=== PATIENT | female | born 1950 | race Caucasian/White ===

== ENCOUNTER 2025-02-26 08:08 | Day surgery (SDC) | payer MEDICARE, OTHER, SELFPAY ==
--- OUTSIDE RECORDS SUMMARY | 2025-02-22 08:54 | XMS_ITS | Patient Health Record ---
Author Organization [facility] Address [address] [place] [address] Care Team Providers Care Filament Maker Name Role Phone DWAYNE SMALL CNP Primary Care Provider U Noe Aranda Jr [phone] Allergies Allergen (clinical drug ingredient) Drug/Non Drug Allergy documented on EMR Reaction Allergy Type Onset Date Status Penicillin Unknown Drug Allergy Active Reason For Referral No Information Medications Medication SIG (Take, Route, Frequency, Duration) Notes Start Date End Date Status Omeprazole Active Levothyroxine Sodium 75 MCG 1 capsule in the morning on an empty stomach Orally Once a day Active Enalapril Maleate 20 MG 1 tablet Orally Once a day Active Multivitamin Active Tylenol Active Social History Tobacco Use: Social History Observation Description Date Details (start date - stop date) Never Smoker NA - NA Tobacco Control (Standard) Question Answer Notes Tobacco use: Nonsmoker AUDIT-C (Standard) Question Answer Notes Did you have a drink containing alcohol in the p ast year? No Points 0 Interpretation Negative Problems Problem Type SNOMED Code ICD Code Onset Dates Problem Status W/U Status Risk Notes Problem [id number] Colon cancer screening (Z12.11) Active confirmed Problem [id number] Gastroesophageal reflux disease, unspecified whether esophagitis present (K21.9) Active confirmed Vital Signs Blood pressure diastolic 11 mm Hg 02/21/2025 Height 61 in 02/21/2025 Blood pressure systolic 111 mm Hg 02/21/2025 Weight 155 lbs 02/21/2025 BMI 29.28 kg/m2 02/21/2025 Encounters Encounter Location Date Provider Diagnosis [facility] [address] [place] [address] 02/21/2025 Noe Cowan Jr Colon cancer screening Z12.11 and Gastroesophageal reflux disease, unspecified whether esophagitis present K21.9 [facility] [address] [facility] [address] [place] [address] 02/21/2025 Noe Cowan Assessments Encounter Date Diagnosis (ICD Code) Assessment Notes Treatment Notes Treatment Clinical Notes Section Notes 02/21/2025 Colon cancer screening (ICD-10 - Z12.11) Colonoscopy material was printed We discussed gastroesophageal reflux disease today. We discussed diet, lifestyle modifications, and weight management. We recommended she continue omeprazole. She will be seen in follow-up for colorectal cancer screening. She understands risks and benefits and agrees to proceed. This will be scheduled at her convenience. 02/21/2025 Gastroesophageal reflux disease, unspecified whether esophagitis present (ICD-10 - K21.9) Gastroesophageal reflux disease material was printed We discussed gastroesophageal reflux disease today. We discussed diet, lifestyle modifications, and weight management. We recommended she continue omeprazole. She will be seen in follow-up for colorectal cancer screening. She understands risks and benefits and agrees to proceed. This will be scheduled at her convenience. Plan Of Treatment Future Test Test Name Order Date COLONOSCOPY 02/21/2025 Next Appt Details Provider Name:Noe Landis Charles cheng Jr, 02/26/2025 12:00:00 PM, [address] [facility] , [place], [place], [phone], Insurance Providers Payer Name Payer Address Payer Phone Subscriber Number Group Number Insured Name Patient Relationship to Insured Coverage Start Date Coverage End Date [facility] [address] [place] [phone] [id number] RONIT BALDERRAMA Self - patient is the insured 4 MEDICAID OF [facility] [address] [place] [address] [id number] RONIT BALDERRAMA Self - patient is the insured Medical (General) History Medical History History ICD Code hx of breast cancer right/radiation/chem o hypertension Aortic stenosis, moderate Hypothyroidism Gastroesophageal reflux disease Surgical History Surgery Date(Month/Year) Right lumpectomy section-2 disc surgery
--- OUTSIDE RECORDS SUMMARY | 2025-02-22 08:54 | XMS_ITS | Clinical Summary ---
Author Organization [facility] Address [address] [place] [address] Care Team Providers Care Rn Camp Name Role Phone Unavailable Primary Care Provider Unavailabl e Immunizations Name Administration Dates Next Due PPD/TST (Tuberculin Skin Test) 11/23/1999 Social History Tobacco Use Types Packs/Day Years Used Date Smoking Tobacco: Never Assessed Comments Unknown Sex and Gender Information Value Date Recorded Sex Assigned at Not on file Legal Sex Female 4:51 AM EDT Gender Identity Not on file Sexual Orientation Not on file Plan of Treatment Health Maintenance Due Date Last Done Comments Hepatitis C Screening 1950 DTaP/Tdap/Td (1 - Tdap) 1969 Mammogram/Breast Imaging 1991 Pneumococcal 50+ years (1 of 1 - PCV) 2001 Zoster (Shingrix) (1 of 2) 2001 Bone Density 01/24/2016 COVID-19 Vaccine ( - 2023-2 5 season) 2024 Influenza (#1) 2024 RSV (1 - 1-dose 75+ series) 2026 HPV Vaccine Aged Out No longer eligi ble based on patient's age to complete this topic Hep A Aged Out No longer eligi ble based on patient's age to complete this topic Hep B Aged Out No longer eligi ble based on patient's age to complete this topic Hib Aged Out No longer eligi ble based on patient's age to complete this topic Meningococcal ACWY Aged Out No longer eligible based on patient's age to complete this topic Pap Smear Discontinued Zoster (Zostavax) Discontinued
--- OUTSIDE RECORDS SUMMARY | 2025-02-22 08:54 | XMS_ITS ---
Author Organization [facility] Address [address] [place] [phone] Care Team Providers Care Retail Parts Pro Name Role Phone DWAYNE SMALL CNP Primary Care Provider U manuel Cowan Jr, Noe Garcia REASON FOR VISIT colonoscopy Encounters Encounter Location Date Provider Diagnosis [facility] [address] [place] [phone] 02/21/2025 Noe Cowan Jr Plan Of Treatment Next Appt Details Provider Name:Noe cheng Jr, 02/26/2025 12:00:00 PM, [address] [place] [address] , [place], [place], [phone], Progress Notes * RONIT BALDERRAMADOB: (75 yo F)Acc No.[id number]:02/21/2025 Patient:?RONIT BALDERRAMA :1950???Age:75 Y???Sex:Female Address: [place] [address] * true * Date:? Generated for Printi renee/Carol/eTransmitting on:?02/22/2025 08:54 AM EDT
--- OUTSIDE RECORDS SUMMARY | 2025-02-22 08:54 | XMS_ITS ---
Author Organization [facility] Address [address] [place] [phone] Care Team Providers Care Picker Feeder Name Role Phone DWAYNE SMALL CNP Primary Care Provider U Noe Aranda Jr Unavailable Allergies Allergen (clinical drug ingredient) Drug/Non Drug Allergy documented on EMR Reaction Allergy Type Onset Date Status Penicillin Unknown Drug Allergy Active REASON FOR VISIT PATIENT PRESENTS TODAY FOR COLON SCREENING Medications Medication SIG (Take, Route, Frequency, Duration) [...] Problem Status W/U Status Risk Notes Problem [id number] Colon cancer screening (Z12.11) Active confirmed Problem [id number] Gastroesophageal reflux disease, unspecified whether esophagitis present (K21.9) Active confirmed Vital Signs Blood pressure systolic 111 mm Hg 02/22/20 25 Blood pressure diastolic 11 mm Hg 025 Height 61 in 02/21/2025 Weight 155 lbs 02/21/2025 BMI 29.28 kg/m2 02/21/2025 Encounters Encounter Location Date Provider [facility] [address] [place] [phone] 02/21/2025 Noe Cowan Jr Colon cancer screening Z12.11 and Gastroesophageal reflux disease, unspecified whether esophagitis present K21.9 Assessments Encounter Date Diagnosis (ICD Code) Assessment [...] scheduled at her convenience. Plan Of Treatment Treatment Notes Assessment Notes Colon cancer screening Colonoscopy mater ial was printed Gastroesophageal reflux dise ase, unspecified whether esophagitis present Gastroesophageal reflux disease material was printed Future Test Test Name Order Date COLONOSCOPY 02/21/2025 Next Appt Details Follow Up: 1 Year, Reason: Provider Name:Noe cheng Jr, 02/26/2025 12:00:00 PM, [address] [place] [address], [phone], Progress Notes * JODIE BALDERRAMA JDOB: (75 yo F)Acc No.[id number]:02/21/2025 Progress Notes Patient:?MICHAEL BALDERRAMARIGem Crooks Provider:?Noe Cowan MD :1950???Age:75 Y???Sex:Female D ate:02/21/2025 Address:[address] [place], [place] [id number] Pcp:DWAYNE SMALL CNP Subjective: * Chief Complaints: * ???1. PATIENT PRESENTS TODAY FOR COLON SCREENING. * HPI: ???New symptom(s):?Jodie is a pleasant 75-year-old woman seen today in consultation for gastroesophageal reflux disease andr her preoperative colonoscopy visit. She has a long history of gastroesophageal reflux disease with substernal burning precipitated by the typical foods including spicy foods and fatty foods. Symptoms have been under good control on omeprazole. She has no dysphagia, hematemesis, or melena. Weight and appetite have been stable. She has a history of colon polyps including a sessile serrated adenoma with high-grade dysplasia, with her last colonoscopy in 2019. She is due for follow- up. She has no complaints of rectal bleeding or change in her bowel habits. Weight and appetite have been stable. * ROS:?General/Constitutional:?Change in appetite?denies.?Fatigue?denies.?ENT:?Patient denies?difficulty swallowing.?Respiratory:?Patient denies?shortness of breath.?Cardiovascular:?Patient denies?chest pain.?Gastrointestinal:?Comments?See HPI for details.?Genitourinary:?Difficulty urinating?denies.?Incontinence?denies.?Musculoskeletal:?Patient denies?muscle aches.?Skin:?Patient denies?pruritis.?Neurologic:?Patient denies?low back pain.?Psychiatric:?Patient denies?mental or physical abuse.? * Medical History:?Hx of breas t cancer right/radiation/chemo, Hypertension, Aortic stenosis, moderate, Hypothyroidism, Gastroesophageal reflux disease. * Surgical History:?disc surge ry , section-2 , Right lumpectomy . * Family History:?Father: dece ased.?Mother: , alzheimer's dementia.?Paternal uncle: diagnosed with Heart disease.? no known hx of colon ca. * Social History:?Tobacco Use:?Tobacco Control (Standard)?Tobacco use:?Nonsmoker.?Miscellaneous:?Marital status: . Occupation: retired. ???Drug/Alcohol:?AUDIT-C (Standard)?Did you have a drink containing alcohol in the past year??No,?Points?0,?Interpretation?Negative.? * Medications:?Taking Tylenol , Taking Multivitamin , Taking Enalapril Maleate 20 MG Tablet 1 tablet Orally Once a day , Taking Levothyroxine Sodium 75 MCG Capsule 1 capsule in the morning on an empty stomach Orally Once a day , Taking Omeprazole , Medication List reviewed and reconciled with the patient * Allergies:?Penicillin. Objective: * Vitals:?Wt:155lbs, Ht:61in, BMI: 29.28 Index, BP:111/11mm Hg, Ht-cm: 154.94, Wt- k.31. * Examination: ???General Examination: ?GENERAL APPEARANCE:?in no acute distress.?HEAD:?normocephalic.?EYES:?sclera non-icteric.?ORAL CAVITY:?mucosa moist.?NECK/THYROID:?no lymphadenopathy.?SKIN:?anicteric.?HEART:?S1, S2 normal, no murmurs.?LUNGS:?clear to auscultation bilaterally.?CHEST:?normal shape and expansion.?ABDOMEN:?soft, nontender, nondistended, bowel sounds present, no organomegaly .?EXTREMITIES:?no clubbing, cyanosis, or edema.?PSYCH:?cognitive function intact.? Assessment: * Assessment: 1.?Gastroesophageal reflux d isease, unspecified whether esophagitis present - K21.9 (Primary)???2.?Colon cancer screening - Z12.11??? We discussed gastroesophagea l reflux disease today. We discussed diet, lifestyle modifications, and weight management. We recommended she continue omeprazole. She will be seen in follow-up for colorectal cancer screening. She understands risks and benefits and agrees to proceed. This will be scheduled at her convenience. Plan: * Treatment: 2.?Colon cancer screening?Procedure: COLONOSCOPY (Ordered for 02/21/2025) Notes: Colonoscopy material was printed?? * Procedure Codes:?3017F COLOR ECTAL CA SCREEN DOC REV, G9902 Pt scrn tbco and id as user, G9744 PATIENT NOT ELIG D/T ACTIVE DX HTN * Preventive Medicine:? ??Counseling:?Care goal follow-up plan:?Above Normal BMI Follow-up?Giving encouragement to exercise,?BMI management provided?Yes.? ??Urinary Incontinence:?Urinary Incontinence?Assessment:?Present,?Plan of care documented:?Yes,?Type of plan of care:?Lifestyle interventions.? ??Screenings:?Fall Risk Screening?Fall Risk Assessment:?No falls in the past year,?Screening:?No falls in the past year,?Assessment:?Not performed, no reason specified,?Plan of Care:?Not documented, no reason specified.? * Follow Up:?1 Year * * Sign off status: Completed true * Provider:?Noe Cowan MD Date:?0 02/21/2025 Generated for Velma duran/Carol/eTdentonsmitting on:?02/22/2025 08:54 AM EDT History and Physical Notes * HPI (History of Present Illness) Category Sub-Category Detail Notes Category Not es New symptom(s) Jodie is a pleasant 75-year-old woman seen today in consultation for gastroesophageal reflux disease andr her preoperative colonoscopy visit. She has a long history of gastroesophageal reflux disease with substernal burning precipitated by the typical foods including spicy foods and fatty foods. Symptoms have been under good control on omeprazole. She has no dysphagia, hematemesis, or melena. Weight and appetite have been stable. She has a history of colon polyps including a sessile serrated adenoma with high-grade dysplasia, with her last colonoscopy in 2019. She is due for follow-up. She has no complaints of rectal bleeding or change in her bowel habits. Weight and appetite have been stable. Examination Category Sub-Category Detail Notes Category Not es General Examination GENERAL APPEARANCE: in no acute di stress HEAD: normocephalic EYES: sclera non-icteric NECK/THYROID: no lymphadenopathy HEART: S1, S2 normal, no mu rmurs CHEST: normal shape and exp ansion LUNGS: clear to auscultatio n bilaterally ABDOMEN: soft, nontender, non distended, bowel sounds present, no organomegaly SKIN: anicteric EXTREMITIES: no clubbing, cyanosi s, or edema PSYCH: cognitive function i ntact ORAL CAVITY: mucosa moist
--- OUTSIDE RECORDS SUMMARY | 2025-02-22 08:54 | XMS_ITS | Clinical Summary ---
Author Organization [facility] Address [address] [place] [address] Care Team Providers Care Docketing Specialist Name Role Phone No, Pcp FLAME DEGREASER Primary Care Provider Unavailabl e Allergies Active Allergy Reactions Criticality Noted Date Comments Penicillins Swelling 07/15/2015 Facial swelling Medications enalapril (VASOTEC) 10 MG tablet 5 07/08/2015 Active levothyroxine (SYNTHROID, LEVOTHROID) 50 MCG tablet 5 07/08/2015 Active Immunizations Name Administration Dates Next Due Afluria TIV Prefilled Syringe (9+ Years) 015 Tdap 07/15/2015 Social History Tobacco Use Types Packs/Day Years Used Date Smoking Tobacco: Never Comments No Sex and Gender Information Value Date Recorded Sex Assigned at Not on file Legal Sex Female 9:07 AM EDT Gender Identity Not on file Sexual Orientation Not on file Last Filed Vital Signs Vital Sign Reading Time Taken Comments Blood Pressure 98/68 07/15/2015 9:22 AM EDT Pulse 88 07/15/2015 9:22 AM EDT Temperature 36.7 ??C (98.1 ??F) 07/15/2015 9:22 AM ED T Respiratory Rate 18 07/15/2015 9:22 AM EDT Oxygen Saturation 98% 07/15/2015 9:22 AM EDT Inhaled Oxygen Concentration - - Weight - - Height - - Body Mass Index - - Plan of Treatment Health Maintenance Due Date Last Done Comments Colorectal Cancer: COLONOSCO PY Screening every 10 yrs (or Modifier) 1950 Depression: Screening Annual ly using PHQ-2/9 in Adults 18 yrs or above (or HM Modifier)([facility]) 1950 Hepatitis C Virus Infection in Adolescents and Adults: Screening (or Modifier) ([facility]) 1969 DIPIKA Screening: Once using ST OP-BANG Questionnaire for Adults with Conditions or high BMI([facility]) 1969 SDOH Screening Reminder: Azra richardson for all adults ([facility]) 1969 Tobacco Smoking Cessation: i n Adults excluding Women: Behavioral and Pharmacotherapy Interventions ([facility]) 1969 Colorectal Cancer Screening 45 -75 Yrs (or HM Modifier) 01/24/1996 Colorectal Cancer: FLEXIBLE SIGMOIDOSCOPY Screening every 5 yrs 01/24/1996 Colorectal Cancer: Fecal Imm unochemical Test (FIT) Annually [facility] 01/24/1996 Colorectal Cancer: High-sens itivity gFOBT Screening Annually [facility] 01/24/1996 Colorectal Cancer: Stool Col oguard Screening every 3 yrs 01/24/1996 Colorectal Cancer:CT Colonog bentley Screening every 5 yrs 01/24/1996 Lipid Screening: Every 5 yrs for Women aged 45+ (or HM Modifier) ([facility]) 1997 Breast Cancer: Screening Azra dylan age 50-74 yrs (or HM Modifier)([facility]) 2001 Pneumococcal Vaccination Scr eening: Patients 50+ yrs of age ([facility]) (1 of 1 - PCV) 2001 Zoster/Shingles Vaccine Seri es Screening: Adults aged 18+ yrs (or HM Modifiers)([facility]) (1 of 2) 2001 Osteoporosis Screening to Pr event Fractures: Women aged 65 years+ ([facility]) 01/24/2016 COVID-19 Vaccine Screening: Initial Series and Booster Status ([facility]) ( - 2023- season) 2024 Flu Vaccination: Ages 65+: Y early High Dose Recommended (or Modifier)([facility]) 06/07/2025 07/15/2015 DTaP/Tdap/Td Vaccines ([facility]) (2 - Td or Tdap) 07/15/2015 RSV Vaccines (1 - 1-dose 75+ series) 2026 Medical Devices Not on file Insurance [employer] [place] Care Teams Docketing Specialist Relationship Specialty Start Date End Date No, Pcp, FLAME DEGREASER N/A Do not use PCP - General 07/15/15
[2025-02-22 10:00] VITALS: BMI 29.3
--- NOTE | 2025-02-22 10:39 | HO.ANESPROP2 ---
Documented by User: Tara Menjivar NP 02/22/25 10:41 HPI - Anesthesia Eval Consult details Narrative: 75yo F for Colonoscopy ERBE Jet 2 Aortic stenosis. Follows [facility] cardiology - asymptomatic and stable, ROLANDO=1.0cm2 Rev'd with Dr Ruiz [facility] Social History Social History Advance Directives: No Advance Directives Information Provided: Yes Meds Allergies Allergy/AdvReac Type Severity Reaction Status Date / Time Penicillins Allergy Unknown Unknown Verified 02/22/25 10:02 Home Medications ?Medication ?Instructions ?Recorded ?Confirmed ?Last Taken ?Type Tylenol 02/22/25 02/22/25 Unknown History enalapril maleate 10 mg tablet 10 mg PO DAILY 02/22/25 02/22/25 Unknown History levothyroxine 75 mcg tablet 75 mcg PO DAILY 02/22/25 02/22/25 Unknown History multivitamin 02/22/25 Unknown History omeprazole 02/22/25 Unknown History Exam Height,Weight and Vital Signs: Height 5 ft 1 in Weight 70.307 kg Pertinent Lab Results Pertinent Lab Results: CBC and BMP 01/2025 from [facility] [place] Narrative Narrative: Diagnostic ImpressionCTCT Heart/Coronary/3D/Morph ? 13:18:58 IMPRESSION: 1. Mild stenosis (25-49%) in the proximal and mid LAD due to short segments of mixed and non-calcified plaque. 2. Minimal stenosis (1-24%) in the left main and proximal LCx due to short segments of mixed plaque. 3. Scattered short segments of mixed atherosclerotic plaque in the descending thoracic aorta. 4. Mild aortic valve calcification and mild anterior mitral annular calcification. Noncardiac findings will be separately interpreted and reported by Radiology as an addendum to this report. WSN: [id number] Ordering Physician: Chadwick Pride ? Signed By: Michael Madrid MD ? 16:24:24 IMPRESSION: Patulous distal esophagus containing ingested fluid material which may represent a risk factor for aspiration. No significant abnormality in the visualized portions of the chest. Cardiac findings are reported separately. I have personally reviewed the images and I agree with this report. WSN: [id number] Ordering Physician: Chadwick Pride ? Signed By: Chadwick Brooke MD ECGECG 12-Lead ? NORIS/19/23 14:30:34 Ventricular Rate: 75 BPM Atrial Rate: 75 BPM P-R Interval: 180 ms QRS Duration: 132 ms Q-T Interval: 440 ms QTC Calculation(Bazett): 491 ms P [place]: 49 degrees R [place]: -24 degrees T [place]: 62 degrees Normal sinus rhythm with sinus arrhythmia Left bundle branch block Abnormal ECG When compared with ECG of 31-JUL-2015 09:30, Left bundle branch block is now Present Confirmed by KELLY PRIDE MD ([id number]) on 05/25/2023 8:46:53 PM [place]: KELLY PRIDE MD ? Signed By: Chadwick Pride MD ? ECG 12-Lead ? 14:30:34 Please click on pdf link to open report ? Signed By: Chadwick Pride MD Stress Test NM Myocard Perf SPECT Multi ? 08:45:00 Summary No evidence of myocardial ischemia. Possible prior infarction in LAD territory. Normal left ventricular size and function. Signatures _ _ ? Signed By: Chadwick Pride MD EchoEchocardiogram - Complete ? 10:03:28 Summary The left ventricular ejection fraction is 50-55 %. The LV systolic function is low normal . Normal right ventricular size and function. There is moderate aortic stenosis (mean gradient 17 mmHg, peak velocity 2.6 m/s, ROLANDO 1.0 cm2, dimensionless index 0.33, based upon an LVOT measurement of 2.0 cm). There is mild aortic regurgitation. The pulmonary artery systolic pressure estimation is within normal limits. Documented by User: Vargas Prince MD 02/26/25 10:31 [facility] Family History Family history of problems with anesthesia: No Surgical History History of Problems with Anesthesia: No Social History Social History Advance Directives: No Advance Directives Information Provided: Yes Meds Allergies Allergy/AdvReac Type Severity Reaction Status Date / Time Penicillins Allergy Unknown Unknown Verified 02/22/25 10:02 Home Medications ?Medication ?Instructions ?Recorded ?Confirmed ?Last Taken ?Type Tylenol 02/22/25 02/22/25 Unknown History enalapril maleate 10 mg tablet 10 mg PO DAILY 02/22/25 02/22/25 Unknown History levothyroxine 75 mcg tablet 75 mcg PO DAILY 02/22/25 02/22/25 Unknown History multivitamin 02/22/25 Unknown History omeprazole 02/22/25 Unknown History Exam Airway Mallampati Class: III TM Dist: >3cm Neck ROM: Full Denture: Upper and Lower Assessment and Plan Assessment Anesthesia Assessment: Anesthesia Plan Discussed and Chart Reviewed Final Anesthetic Review Family History of Problems with Anesthesia: No History of Problems with Anesthesia: No ASA Class: III Final Preanesthetic Review: No Changes in Pt Med Stat, Meds/Allgs Chart Reviewed, Consent Obtained/Reviewed and Anes Risks/Benef Reviewed Patient Risk: Intermediate Procedure Risk: Low Anesthetic Plan Anesthetic Plan: TIVA Disposition: Standard PACU
[2025-02-26 10:23] VITALS: BP 153/88; PULSE 91; RESP 20; TEMP 36.6; O2SAT 98; BMI 28.8
[2025-02-26] MEDS: Lactated Ringers 1,000 ML 100 ML IVCONT (10:45)
--- NOTE | 2025-02-26 11:00 | MHC.SHP ---
Pre-Procedural Eval Section A - 24 Hr Update-Section A only Date of Service: 02/26/25 The patient is an INPATIENT: No Changes since office visit: No Cold of Flu in the past 2 weeks, No New Medical Problems, No Changes in Medication and No Patient answered all questions The patient has been examined within 24 hours of the surgical procedure. The History & Physical has been completed within 30 days and I have reviewed it.: Yes Section B - Complete if H&P > 30 days Chief Complaint: screening Allergies: Allergies Allergy/AdvReac Type Severity Reaction Status Date / Time Penicillins Allergy Unknown Unknown Verified 02/26/25 10:33 Plan I have reviewed the history and physical and performed a pertinent physical examination on my patient. No changes have occurred unless specified. Time Spent With Patient Time: Total time managing care of this patient today ____ minutes.
[2025-02-26 11:31] VITALS: BP 118/62; PULSE 71; RESP 12; TEMP 36.1; O2SAT 98
--- NOTE | 2025-02-26 11:31 | P.BOP_ITS ---
Brief Operative Note Date of Service: 02/26/25 Pre-op diagnosis: screening Post-op diagnosis: same Procedure: colonoscopy Surgeon: Noe Cowan MD Was an Audio Visual Aids Director used for this Procedure?: No Estimated blood loss (mL): 0 Pathology: none sent Condition: stable Disposition: PACU
[2025-02-26 11:46] VITALS: BP 132/68; PULSE 70; RESP 12; O2SAT 98
--- NOTE | 2025-02-26 11:55 | OP_ITS ---
DATE OF SERVICE: 02/26/2025 SURGEON: Noe Cowan MD INDICATIONS: Colon cancer screening. PREOPERATIVE DIAGNOSIS: POSTOPERATIVE DIAGNOSIS: PROCEDURE PERFORMED: ESTIMATED BLOOD LOSS: COMPLICATIONS: ANESTHESIA: ASSISTANTS: SPECIMENS: PROCEDURE: Colonoscopy to the cecum. MEDICATIONS: Monitored anesthesia care. DESCRIPTION OF PROCEDURE: History and physical performed. The risks and benefits of the procedure were explained to the patient. Informed consent was obtained. The patient was placed in the left lateral decubitus position. A digital rectal exam was performed and was found to be normal. The Olympus pediatric video colonoscope was introduced into the rectum and advanced to the cecum. The cecum was identified by transillumination, palpation, and identification of ileocecal valve. Examination was performed. The scope was removed. She tolerated the procedure well and was taken to recovery in stable condition. FINDINGS: The terminal ileum was not examined. The visualized colonic mucosa was normal. The exam was extremely limited due to retained stool in the right colon and transverse colon as well as scattered stool throughout the remainder of the colon and small polyps could have been missed. It was not possible to suction the retained stool due to its consistency. No polyps were identified. Retroflexed examination was normal. IMPRESSION: Normal colonoscopy, limited due to bowel prep. RECOMMENDATIONS: 1. Follow up as needed. 2. Repeat colonoscopy could be considered in 6 to 12 months with a 2-day prep pending per patient preference. MD SUSIE Iqbal/IVAN / [id number]
[2025-02-26 12:01] VITALS: BP 136/68; PULSE 67; RESP 16; TEMP 36.3; O2SAT 99
== END 2025-02-26 12:48 | disposition home or self-care (01) ==
PROVIDERS: PCP Nurse Practitioner Family; Visit Provider Internal Medicine Gastroenterology
PROC: 0DJD8ZZ Inspection of Lower Intestinal Tract, Via Natural or Artificial Opening Endoscopic (ICD-10-PCS; CPT 45378; principal; 2025-02-26 12:00)
DX: Z12.11 Encounter for screening for malignant neoplasm of colon (principal); Z86.0101 Personal history of adenomatous and serrated colon polyps; K21.9 Gastro-esophageal reflux disease without esophagitis; I10 Essential (primary) hypertension; I35.0 Nonrheumatic aortic (valve) stenosis; E03.9 Hypothyroidism, unspecified; Z85.3 Personal history of malignant neoplasm of breast; Z92.3 Personal history of irradiation; Z92.21 Personal history of antineoplastic chemotherapy; Z79.899 Other long term (current) drug therapy
CPT/HCPCS: G0105